=== PATIENT | female | born 1990 | race African-American/Black ===

== ENCOUNTER 2017-11-07 14:20 | Inpatient (IN) | payer OTHER ==
[2017-11-07] MEDS: DEXTROSE 5%-LACTATED RINGERS 1,000 ML IV SCH ×2 (15:00→20:00)
[2017-11-07 15:29] VITALS: BMI 23.7
[2017-11-07 16:26] LABS: BASO % 0.3 % (0-2.0); EOS % 0.2 % (0-4.5); HEMOGLOBIN 10.4 GM/dL (10.7-15.3); LYMPH % 19.3 % (8-40); MCH 28.8 pg (25.7-33.7); MCHC 32.6 g/dl (32.0-36.0); MEAN CELL VOLUME 88.4 fl (80-96); MEAN PLT VOLUME 11.3 fl (7.5-11.1); NEUT % 73.2 % (42.8-82.8); PLATELET COUNT 90 K/MM3 (134-434); RBC 3.62 M/mm3 (3.60-5.2); RDW 16.9 % (11.6-15.6); WHITE BLOOD COUNT 6.7 K/mm3 (4.0-10.0)
[2017-11-07 16:39] LABS: INR 0.99 (0.82-1.09); PROTHROMBIN TIME (PATIENT) 11.2 SEC (9.7-13.0)
[2017-11-07 16:42] LABS: ACTIVATED PTT 21.9 SECONDS (26.9-34.4)
[2017-11-07 16:59] LABS: ANION GAP 9 (8-16); BLOOD UREA NITROGEN 4 mg/dL (7-18); CALCIUM 8.5 mg/dL (8.5-10.1); CHLORIDE 106 mmol/L (98-107); CO2 23 mmol/L (21-32); CREATININE 0.5 mg/dL (0.55-1.02); GLUCOSE,RANDOM 98 mg/dL (74-106); POTASSIUM 3.9 mmol/L (3.5-5.1); SODIUM 138 mmol/L (136-145)
--- NOTE | 2017-11-07 18:20 | HP ---
Past Medical History - Admission Chief Complaint: Postdates History of Present Illness: 27 yo @ 41 weeks gestation, EDC 10/29/17, admitted due to postdates . Upon admission she was 2cm dilated. History Source: Patient Limitations to Obtaining History: No Limitations - Past Medical History ...: 4 ...Para: 2 ...Term: 2 ...Spon : 1 ...LMP: 01/22/17 ... Weeks Gestation by Dates: 40.1 ...EDC by Dates: 11/06/17 ...EDC by Sono: 10/29/17 - Past Surgical History Past Surgical History: Yes: None Hx Myomectomy: No Hx Transabdominal Cerclage: No - Smoking History Smoking history: Former smoker - Alcohol/Substance Use Hx Alcohol Use: No - Social History Usual Living Arrangement: Yes: Alone History of Recent Travel: No Home Medications - Allergies Allergies/Adverse Reactions: Allergies Allergy/AdvReac Type Severity Reaction Status Date / Time No Known Allergies Allergy Verified 11/07/17 16:22 - Home Medications Home Medications: Ambulatory Orders Tablet 1 tablet PO DAILY 11/07/17 Review of Systems - Review of Systems Constitutional: reports: No Symptoms Eyes: reports: No Symptoms HENT: reports: No Symptoms Neck: reports: No Symptoms Cardiovascular: reports: No Symptoms Respiratory: reports: No Symptoms Gastrointestinal: reports: No Symptoms Genitourinary: reports: No Symptoms Breasts: reports: No Symptoms Reported Musculoskeletal: reports: No Symptoms Integumentary: reports: No Symptoms Neurological: reports: No Symptoms Endocrine: reports: No Symptoms Hematology/Lymphatic: reports: No Symptoms Psychiatric: reports: No Symptoms Pain Intensity: 2 Physical Exam - Maternity Vital Signs: Vital Signs Temperature 98.2 F 11/07/17 15:21 Pulse Rate 88 11/07/17 17:00 Respiratory Rate 20 11/07/17 17:00 Blood Pressure 121/70 11/07/17 17:00 O2 Sat by Pulse Oximetry (%) Constitutional: Yes: Well Nourished Eyes: Yes: Conjunctiva Clear HENT: Yes: Atraumatic Neck: Yes: Supple Cardiovascular: Yes: Regular Rate and Rhythm Lungs: Clear to auscultation - Abdominal Exam/OB Number of Fetuses: Single Presentation: Vertex - Vaginal Exam/OB Dilatation (cm): 2 Effacement (%): 60 Amniotic Membrane Status: Intact Presentation: Vertex/Position Station: -3 - Physical Exam ...Motor Strength: WNL Psychiatric: Yes: Alert, Oriented - Labs Lab Results: CBC, BMP 11/07/17 16:00 11/07/17 16:00 Problem List - Problems (1) Post-dates Code(s): O48.0 - POST-TERM Qualifiers: Post-term type: 40-42 weeks gestation Qualified Code(s): O48.0 - Post-term Assessment/Plan Post-dates Admit to L&D for IOL Anticipate
--- NOTE | 2017-11-07 18:37 | PN ---
Progress Note (short form) - Note Progress Note: Patient seen and re-evaluated. She c/o mild discomfort. FHR : Reassuring Miner : + irregular contractions VE : /-3 SROM ( clear ) A / P : Postdates Analgesia as needed Consider Pitocin augmentation Problem List - Problems (1) Post-dates Code(s): O48.0 - POST-TERM Qualifiers: Post-term type: 40-42 weeks gestation Qualified Code(s): O48.0 - Post-term
[2017-11-07] MEDS ORDERED: OXYTOCIN 30 UNITS in 0.9% NS 30 UNIT/500 ML INFUS.BAG IVPB SCH (19:15)
[2017-11-07] MEDS ORDERED: OXYTOCIN 30 UNITS in 0.9% NS 30 UNIT/500 ML INFUS.BAG IVPB ONE (19:16)
[2017-11-07] MEDS ORDERED: BUTORPHANOL TARTRATE 1 MG/ML VIAL ONE ×2 (23:53)
[2017-11-07] MEDS ORDERED: PROMETHAZINE HCL 25 MG/1 ML VIAL ONE (23:53)
[2017-11-08] MEDS ORDERED: BUTORPHANOL TARTRATE 1 MG/ML VIAL IVPB ONE ×2 (00:15→04:40)
[2017-11-08] MEDS ORDERED: PROMETHAZINE HCL 25 MG/1 ML VIAL IVPB ONE ×2 (00:15→04:40)
[2017-11-08] MEDS ORDERED: OXYTOCIN 20 UNITS in 0.9% NS 20 UNIT/1,000 ML INFUS.BAG IV ONE ×2 (01:59→07:45)
[2017-11-08] MEDS ORDERED: BUTORPHANOL TARTRATE 1 MG/ML VIAL ONE (04:31)
[2017-11-08] MEDS ORDERED: PROMETHAZINE HCL 25 MG/1 ML VIAL ONE (04:31)
[2017-11-08] MEDS ORDERED: BENZOCAINE 28 GM HEMORRHOIDAL OINTMENT TP PRN (05:50)
[2017-11-08] MEDS ORDERED: BENZOCAINE 20% 57 GM BOTTLE TP PRN (05:50)
[2017-11-08] MEDS ORDERED: IBUPROFEN 600 MG TABLET (FP) PO PRN (05:50)
[2017-11-08] MEDS ORDERED: BISACODYL 10 MG SUPP.RECT RC PRN (05:50)
[2017-11-08] MEDS ORDERED: ACETAMINOPHEN 325 MG TABLET (FP) PO PRN (05:50)
[2017-11-08] MEDS ORDERED: METHYLERGONOVINE MALEATE 0.2 MG/1 ML AMP IM PRN (05:50)
[2017-11-08] MEDS ORDERED: WITCH HAZEL 50% (TUCKS) 40 PAD/JAR PAD TP PRN (05:50)
--- NOTE | 2017-11-08 05:53 | PN ---
Delivery - Delivery Vaginal Delivery: Spontaneous Type of Anesthesia: Local Episiotomy/Laceration: None EBL (cc): 300 Remarks - Remarks Remarks: Normal spontaneous vaginal delivery of a live infant girl over intact perineum. Nose / Oropharynx suctioned @ perineum. Cord clamped and cut. Placenta expelled spontaneously intact.
[2017-11-08] MEDS ORDERED: OXYTOCIN 20 UNITS in 0.9% NS 20 UNIT/1,000 ML INFUS.BAG IV SCH (06:00)
[2017-11-08] MEDS: FERROUS SO4 325 MG TABLET (FP) PO SCH ×3 (08:48→16:57)
[2017-11-08] MEDS: PRENATAL VITAMINS W/ FOLIC ACID TABLET (FP) PO SCH (10:18)
[2017-11-09 07:31] LABS: BASO % 0.2 % (0-2.0); EOS % 0.5 % (0-4.5); HEMATOCRIT 29.9 % (32.4-45.2); HEMOGLOBIN 9.9 GM/dL (10.7-15.3); LYMPH % 23.8 % (8-40); MCH 29.7 pg (25.7-33.7); MCHC 33.1 g/dl (32.0-36.0); MEAN CELL VOLUME 89.7 fl (80-96); MEAN PLT VOLUME 11.4 fl (7.5-11.1); MONO % 6.4 % (3.8-10.2); NEUT % 69.1 % (42.8-82.8); PLATELET COUNT 91 K/MM3 (134-434); RBC 3.33 M/mm3 (3.60-5.2); RDW 17.2 % (11.6-15.6); WHITE BLOOD COUNT 10.2 K/mm3 (4.0-10.0)
[2017-11-09] MEDS: PRENATAL VITAMINS W/ FOLIC ACID TABLET (FP) PO SCH (09:07)
[2017-11-09] MEDS: FERROUS SO4 325 MG TABLET (FP) PO SCH ×3 (09:07→17:16)
--- NOTE | 2017-11-09 09:13 | PN ---
Post Progress Note - Subjective Subjective: no complains Post Day: 1 Type of Delivery: Vital Signs: Vital Signs Temperature 98.4 F 11/09/17 08:03 Pulse Rate 85 11/09/17 08:03 Respiratory Rate 20 11/09/17 08:03 Blood Pressure 114/78 11/09/17 08:03 O2 Sat by Pulse Oximetry (%) 100 11/08/17 06:40 Breast Exam: Yes: Soft, Other (bottle feeding ). No: Engorged Uterus: Yes: Fundus Firm, Fundus below umbilicus, Non-tender Lochia: Yes: Rubra Lochia, amount: Moderate Extremities: Yes: Calves non-tender Perineum: Yes: Intact Activity: Ambulating - Labs Labs: CBC WBC 10.2 K/mm3 (4.0-10.0) H D 11/09/17 07:14 RBC 3.33 M/mm3 (3.60-5.2) L 11/09/17 07:14 Hgb 9.9 GM/dL (10.7-15.3) L 11/09/17 07:14 Hct 29.9 % (32.4-45.2) L 11/09/17 07:14 MCV 89.7 fl (80-96) 11/09/17 07:14 MCH 29.7 pg (25.7-33.7) 11/09/17 07:14 MCHC 33.1 g/dl (32.0-36.0) 11/09/17 07:14 RDW 17.2 % (11.6-15.6) H 11/09/17 07:14 Plt Count 91 K/MM3 (134-434) L 11/09/17 07:14 MPV 11.4 fl (7.5-11.1) H 11/09/17 07:14 Neutrophils % 69.1 % (42.8-82.8) 11/09/17 07:14 Lymphocytes % 23.8 % (8-40) D 11/09/17 07:14 Monocytes % 6.4 % (3.8-10.2) 11/09/17 07:14 Eosinophils % 0.5 % (0-4.5) D 11/09/17 07:14 Basophils % 0.2 % (0-2.0) 11/09/17 07:14 Problem List - Problems (1) care following vaginal delivery Code(s): Z39.2 - ENCOUNTER FOR ROUTINE FOLLOW-UP Assessment/Plan anemia , pp care discharge tomorrow . ,
[2017-11-09] MEDS ORDERED: SENNOSIDES/DOCUSATE COMBO (SENNA PLUS) TABLET (UD) PO PRN (22:00)
[2017-11-10] MEDS: FERROUS SO4 325 MG TABLET (FP) PO SCH ×2 (08:30→12:30)
[2017-11-10] MEDS: PRENATAL VITAMINS W/ FOLIC ACID TABLET (FP) PO SCH (09:30)
[2017-11-10 11:36] VITALS: BP 125/83; PULSE 81; TEMP 98.6
--- NOTE | 2017-11-10 14:21 | DS ---
Physical Exam-VISITOR SERVICES COORDINATOR Vital Signs: Vital Signs Temperature 98.6 F 11/10/17 10:00 Pulse Rate 81 11/10/17 10:00 Respiratory Rate 20 11/10/17 10:00 Blood Pressure 125/83 11/10/17 10:00 O2 Sat by Pulse Oximetry (%) 100 11/08/17 06:40 Constitutional: Yes: Well Nourished Eyes: Yes: Conjunctiva Clear HENT: Yes: Atraumatic Neck: Yes: Supple Cardiovascular: Yes: Regular Rate and Rhythm Respiratory: Yes: Regular Gastrointestinal: Yes: Normal Bowel Sounds External Genitalia: Yes: Normal Vaginal Exam: Yes: Normal Cervix: Yes: Normal Uterus: Yes: Normal ....Post : Yes: Uterus firm Breast(s): Yes: WNL Musculoskeletal: Yes: WNL Extremities: Yes: WNL Integumentary: Yes: WNL Neurological: Yes: Alert, Oriented ...Motor Strength: WNL Psychiatric: Yes: Alert, Oriented Labs: CBC, BMP 11/09/17 07:14 11/07/17 16:00 Delivery - Delivery Vaginal Delivery: Spontaneous Type of Anesthesia: None Episiotomy/Laceration: None EBL (cc): 300 Delivery, Single - Stages of Labor Date 1st Stage Initiatied: 11/07/17 Time 1st Stage Initiated: 18:00 Date 2nd Stage Initiated: 11/08/17 Time 2nd Stage Initiated: 04:15 Date of Delivery: 11/08/17 Time of Delivery: 05:40 Time Placenta Delivered: 05:45 - Condition of Infant Technology Solutions Architect/Manager Store Present: No Infant Gender: Female Weight: 8 lb 7 oz Position: Left, OA Total Hours ROM (Hrs/Mins): 11hrs 30min - 1 Minute Total Score: 9 5 Minutes Total Score: 9 Discharge Summary Reason For Visit: LABOR INDUCTION Procedures: Principal: Normal vaginal delivery Hospital Course: Routine care Condition: Good - Instructions Diet, Activity, Other Instructions: call and schedule appointment for exam 4 weeks.if severe bleeding pain of fever call md. Disposition: HOME - Home Medications Comprehensive Discharge Medication List: Ambulatory Orders Tablet 1 tablet PO DAILY 11/07/17
== END 2017-11-10 12:10 | disposition home or self-care (01) | DRG 560 ==
LOC: JDEL 14:20 → JLDR 15:10 → J3W 11-08 07:55
PROVIDERS: ADMIT Obstetrics & Gynecology; ATTEND Obstetrics & Gynecology
PROC: 10E0XZZ Delivery of Products of Conception, External Approach (ICD-10-PCS; principal; 2017-11-08)
DX: O48.0 Post-term pregnancy (principal); Z3A.41 41 weeks gestation of pregnancy; Z37.0 Single live birth; O90.81 Anemia of the puerperium
CPT/HCPCS: 36415; 59409; 80048; 85025; 85610; 85730; 86593; 86850; 86900; 86901

== ENCOUNTER 2018-04-17 17:48 | Emergency (ER) | payer OTHER ==
--- NOTE | 2018-04-17 17:55 | PDOC ---
Rapid Medical Evaluation Time Seen by Provider: 04/17/18 17:52 Medical Evaluation: Allergies Allergy/AdvReac Type Severity Reaction Status Date / Time No Known Allergies Allergy Verified 11/07/17 16:22 04/17/18 17:52 I have performed a brief in-person evaluation of this patient. The patient presents with a chief complaint of: + home preg test 04/08/18, LMP , here w/ intermittent vag bleed and feeling fatigued w/ n/v. No care as of yet. Pt Pertinent physical exam findings:stable and well annie I have ordered the following:labs/US (known to be RH+ per records, s/p 11/11 ) The patient will proceed to the ED for further evaluation. Discharge Disposition - Diagnosis First trimester bleeding - Referrals - Patient Instructions - Post Discharge Activity
[2018-04-17 17:57] VITALS: BP 121/68; PULSE 85; TEMP 99; BMI 20.1
[2018-04-17] MEDS ORDERED: ONDANSETRON 4 MG/2 ML VIAL IVPUSH ONE (18:45)
[2018-04-17] MEDS ORDERED: SODIUM CHLORIDE 1,000 ML IV STA (18:45)
--- NOTE | 2018-04-17 18:47 | PDOC ---
History of Present Illness - General Chief Complaint: Vaginal Bleeding Stated Complaint: VAGINAL BLEED, Time Seen by Provider: 04/17/18 17:52 - History of Present Illness Initial Comments: 04/17/18 20:11 The patient is a 27 year old female who presents for evaluation of vaginal bleeding and generalized weakness. The patient states that her LMP was 03/01/18 and she checked a home test on 04/08/18 which was positive. She notes intermittent vaginal bleeding over the past 1 week with associated nausea and multiple episodes of non-bilious, non-bloody vomiting prompting her presentation to the ED for further evaluation. She denies vaginal bleeding currently and otherwise denies fevers, chills, SOB, chest pain , abdominal pain, vaginal discharge, or changes with urination or bowel movements. Past History - Past Medical History Allergies/Adverse Reactions: Allergies Allergy/AdvReac Type Severity Reaction Status Date / Time No Known Allergies Allergy Verified 04/17/18 17:53 Home Medications: Ambulatory Orders Ondansetron [Zofran Odt -] 4 mg SL TID PRN #21 od.tablet 04/17/18 COPD: No - Suicide/Smoking/Psychosocial Hx Smoking History: Former smoker Have you smoked in the past 12 months: No Information on smoking cessation initiated: No Hx Alcohol Use: No Drug/Substance Use Hx: No Hx Substance Use Treatment: No Review of Systems - Review of Systems Comments:: 04/17/18 20:13 Constitutional: No fevers, chills, fatigue, malaise HEENT: No Rhinorrhea, nasal congestion, visual changes Cardiovascular: No chest pain, syncope, palpitations, lightheadedness Respiratory: No Cough, SOB, Hemoptysis, Gastrointestinal: Nausea, Vomiting. No Abdominal pain, Constipation, Diarrhea, Melena Genitourinary: Vaginal bleeding. No Dysuria, Frequency, Urgency, Hesitancy, Hematuria, Flank pain Musculoskeletal: No Myalgia, arthralgia Skin: No rashes, itching, bruising, pallor Neurologic: No Headache, Dizziness, Numbness, Weakness, or Tingling Psychiatric: No Hallucinations. No SI or HI *Physical Exam - Vital Signs Last Vital Signs Temp Pulse Resp BP Pulse Ox 99 F 85 16 121/68 99 04/17/18 17:55 04/17/18 17:55 04/17/18 17:55 04/17/18 17:55 04/17/18 17:55 - Physical Exam Comments: 04/17/18 20:14 General Appearance: Nourished. No Apparent Distress HEENT: No Pharyngeal Erythema, Tonsillar Exudate, Tonsillar Erythema Neck: No Cervical Lymphadenopathy Respiratory/Chest: Lungs Clear, Normal Breath Sounds. No Crackles, Rales, Rhonchi, Wheezing Cardiovascular: Regular Rhythm, Regular Rate. No Murmur, Gallops, Rubs Gastrointestinal/Abdominal: Normal Bowel Sounds, Soft. No Guarding, Rebound, Tenderness Pelvic Exam: Normal External exam. Closed Cervical OS. No CMT or adenexal tenderness. Musculoskeletal: No CVA Tenderness Extremity: Normal Capillary Refill Integumentary: Normal Color, Dry, Warm Neurologic: Fully Oriented, Alert, Normal Mood/Affect, Normal Response, ED Treatment Course - LABORATORY CBC & Chemistry Diagram: 04/17/18 20:20 04/17/18 20:20 Medical Decision Making - Medical Decision Making 04/17/18 20:15 The patient is a 27 year old female who presents for evaluation of vaginal bleeding and generalized weakness. Differential includes but is not limited to: Physicologic bleeding, Threatened , Hyperemasis Gravidum, Infectious, Metabolic Derangement. Given the patient's history and physical exam, we will obtain a cbc, cmp, beta-quant, type and screen, transvaginal US, ua to evaluate further. We will treat with iv fluids and zofran and continue to monitor and reassess while here in the ED. 04/17/18 22:30 CBC, cmp, ua are unremarkable. Transvaginal US demonstrates a 6 week gestational sac with no pole noted as read by our radiologist. The patient appears well on exam. However, she will need to be re-evaluated given that she is early on in her . We are comfortable discharging the patient home with staff sonographer follow up for re-evaluation. We discussed the results , plan, and return precautions with the patient who voiced understanding and is agreeable with the plan. *DC/Admit/Observation/Transfer Diagnosis at time of Disposition: First trimester bleeding - Discharge Dispostion Disposition: HOME Condition at time of disposition: Stable Decision to Admit order: No - Prescriptions Prescriptions: Ondansetron [Zofran Odt -] 4 mg SL TID PRN #21 od.tablet PRN Reason: Nausea - Referrals Referrals: Cayla García MD [Staff Physician] - - Patient Instructions Printed Discharge Instructions: DI for Vaginal Bleeding During Additional Instructions: Please return to the ER if you experience concerning or worsening symptoms including worsening abdominal pain, vaginal bleeding, nausea, vomiting, or fevers. We have sent a prescription for zofran to your pharmacy that you may take as needed for nausea. Your lab results and ultrasound results showed a possible early or a miscarriage. It is too early to tell but, you will need to be re-evaluated given that you have been experiencing vaginal bleeding with your . Please call to schedule a follow up appointment with your staff sonographer Physician (Dr. García) within 1-2 days to discuss your ER visit and further management of your symptoms. - Post Discharge Activity
[2018-04-17] MEDS ORDERED: ONDANSETRON 4 MG/2 ML VIAL ONE (19:40)
[2018-04-17 20:49] LABS: BASO % 0.5 % (0-2.0); EOS % 1.2 % (0-4.5); HEMATOCRIT 43.7 % (32.4-45.2); HEMOGLOBIN 14.3 GM/dL (10.7-15.3); LYMPH % 26.2 % (8-40); MCH 29.5 pg (25.7-33.7); MCHC 32.8 g/dl (32.0-36.0); MEAN PLT VOLUME 10.4 fl (7.5-11.1); MONO % 5.3 % (3.8-10.2); NEUT % 66.8 % (42.8-82.8); PLATELET COUNT 204 K/MM3 (134-434); RBC 4.86 M/mm3 (3.60-5.2); RDW 13.7 % (11.6-15.6); WHITE BLOOD COUNT 8.1 K/mm3 (4.0-10.0)
--- NOTE | 2018-04-17 20:57 | PDOC ---
Attending Attestation - Resident Resident Name: Ismael Cartwright - ED Attending Attestation I have performed the following: I have examined & evaluated the patient, The case was reviewed & discussed with the resident, I agree w/resident's findings & plan, Exceptions are as noted - HPI HPI: 04/17/18 21:17 The patient is a 27 year old female A0, with no significant past medical history, who presents to the emergency department with, 1 week of vaginal bleeding, fatigue, and nausea with NBNB emesis. As per patient, her symptoms onset as intermittent vaginal bleeding, but denies any vaginal bleeding today. She took an at home test 04/08 and has not received any care. She denies any trauma to the abdomen, abnormal vaginal discharge, or vaginal discomfort. Denies abd pain. She denies recent fevers, chills, headache or dizziness. She denies recent diarrhea or constipation. She denies recent dysuria, frequency, urgency or hematuria. She denies recent chest pain or shortness of breath. Allergies: NKDA Past surgical history: None reported. Social history: Former smoker. Denies EtOH use and recreational drug use. LMP: 03/01/18 Rh: Positive - Physicial Exam PE: 04/17/18 21:26 GENERAL: Awake, alert, and fully oriented, in no acute distress HEAD: No signs of trauma EYES: PERRLA, EOMI, sclera anicteric, conjunctiva clear ENT: Auricles normal inspection, hearing grossly normal, nares patent, oropharynx clear without exudates. Moist mucosa NECK: Normal ROM, supple, no lymphadenopathy, JVD, or masses LUNGS: Breath sounds equal, clear to auscultation bilaterally. No wheezes, and no crackles HEART: Regular rate and rhythm, normal S1 and S2, no murmurs, rubs or gallops ABDOMEN: Soft, nontender, normoactive bowel sounds. No guarding, no rebound. No masses EXTREMITIES: Normal range of motion, no edema. No clubbing or cyanosis. No cords , erythema, or tenderness PELVIC: Refer to resident, Dr. Tyler note. BACK: No midline spinal tenderness in cervical/thoracic/lumbar region NEUROLOGICAL: Normal speech, cranial nerves intact, negative pronator drift, 5/ 5 strength in all 4 extremities, normal sensation to light touch in all 4 extremities, normal cerebellar exam, normal gait, normal reflexes and tone SKIN: Warm, Dry, normal turgor, no rashes or lesions noted. - Medical Decision Making 04/17/18 21:26 27yo F 6 weeks by dates presents to the emergency department with N/V, weakness, intermittent vag bleeding. Vitals wnl. Exam with no abd ttp, pelvic with no bleeding, closed os as per Dr. Cartwright. Plan labs, UA, US, dispo 04/17/18 22:43 Labs wnl UA neg for infection US with 6w+3d fetus, with yolk sac, but no pole. Possible early preg vs blighted ovum Plan for pt to f/u with Dr. García in 1-2 days No bleeding or pain while in ED Tolerating PO, will prescribe zofran for recurrent nausea Pt requests DC home I discussed the physical exam findings, ancillary test results and final diagnoses with the patient. I answered all of the patient's questions. The patient was satisfied with the care received and felt comfortable with the discharge plan and treatment plan. The patient will call their primary care physician within 24 hours to arrange follow-up and will return to the Emergency Department with any new, persistent or worsening symptoms.
[2018-04-17 21:04] LABS: ALBUMIN 4.4 g/dl (3.4-5.0); ALK PHOS 71 U/L (45-117); ANION GAP 8 MMOL/L (8-16); BILIRUBIN,TOTAL 0.4 mg/dL (0.2-1); BLOOD UREA NITROGEN 6 mg/dL (7-18); CALCIUM 9.1 mg/dL (8.5-10.1); CHLORIDE 104 mmol/L (98-107); CO2 27 mmol/L (21-32); CREATININE 0.6 mg/dL (0.55-1.3); GLUCOSE,RANDOM 80 mg/dL (74-106); POTASSIUM 3.8 mmol/L (3.5-5.1); SGOT/AST 20 U/L (15-37); SGPT/ALT 25 U/L (13-61); SODIUM 139 mmol/L (136-145); TOT PROT 8.2 g/dl (6.4-8.2)
[2018-04-17 21:10] LABS: URINE APPEARANCE CLEAR; URINE BILIRUBIN NEGATIVE (<2.0 mg/dL); URINE COLOR LTYELLOW; URINE GLUCOSE (UA) NEGATIVE (NEGATIVE); URINE KETONE NEGATIVE (NEGATIVE); URINE LEUK ESTERASE NEGATIVE (NEGATIVE); URINE NITRITE NEGATIVE (NEGATIVE); URINE PROTEIN NEGATIVE (NEGATIVE)
== END 2018-04-18 00:12 | disposition home or self-care (01) ==
LOC: JER 17:48
PROC: 3E033GC Introduction of Other Therapeutic Substance into Peripheral Vein, Percutaneous Approach (ICD-10-PCS; principal; 2018-04-17)
DX: O26.891 Other specified pregnancy related conditions, first trimester (principal); O20.8 Other hemorrhage in early pregnancy; Z3A.01 Less than 8 weeks gestation of pregnancy
CPT/HCPCS: 36415; 76817-TC; 80053; 81003; 84702; 85025; 87086; 96374; 99284-25; J7030

== ENCOUNTER 2018-05-08 15:30 | Emergency (ER) | payer OTHER ==
[2018-05-08 15:59] VITALS: BP 141/83; PULSE 98; TEMP 98.9; BMI 19.7
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
[2018-05-08] MEDS ORDERED: ACETAMINOPHEN 500 MG TABLET (FP) PO ONE (16:39)
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
[2018-05-08] MEDS ORDERED: ACETAMINOPHEN 325 MG TABLET (FP) ONE (16:59)
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
[2018-05-08] MEDS ORDERED: LIDOCAINE HCL 2% (50ML VIAL) INF ONE (18:34)
[2018-05-08] MEDS ORDERED: LIDOCAINE HCL 2% (20ML MULTI-DOSE VIAL) NR ONE (18:35)
== END 2018-05-08 19:35 | disposition home or self-care (01) ==
LOC: JER 15:30
PROC: 0JQ10ZZ Repair Face Subcutaneous Tissue and Fascia, Open Approach (ICD-10-PCS; principal; 2018-05-08)
DX: S01.21XA Laceration without foreign body of nose, initial encounter (principal); Y00.XXXA Assault by blunt object, initial encounter; Y93.89 Activity, other specified; Y92.414 Local residential or business street as the place of occurrence of the external cause; Y99.8 Other external cause status; Y07.9 Unspecified perpetrator of maltreatment and neglect
CPT/HCPCS: 12013; 84703; 99282-25